=== PATIENT | female | born 1985 | race Hispanic/Latino ===

== ENCOUNTER → 2017-01-31 | Outpatient (CLI) | payer OTHER ==
[2017-01-31 18:51] LABS: BASO # 0.1 K/mm3 (0.0-0.2); BASO % 0.9 % (0.0-1.0); EOS # 0.3 K/mm3 (0.0-0.50); EOS % 3.2 % (0.0-3.0); LARGE UNSTAINED CELL # 0.1 K/mm3 (0.0-0.4); LARGE UNSTAINED CELL % 1.7 % (0.0-4.0); LYMPH # 1.7 K/mm3 (1.5-4.5); LYMPH % 19.8 % (24.0-44.0); MEAN CORPUSCULAR HEMOGLOBIN 30.2 pg (27.0-33.0); MEAN CORPUSCULAR VOLUME 91.6 fl (80.0-96.0); MONO # 0.5 K/mm3 (0.0-0.8); MONO % 5.8 % (0.0-5.0); NEUTROPHILS # 5.6 K/mm3 (1.8-7.7); NEUTROPHILS % 68.7 % (36.0-66.0); PLATELET COUNT, AUTOMATED 290 k/mm3 (150-450); RED CELL DISTRIBUTION WIDTH 12.6 % (11.5-14.5); WHITE BLOOD COUNT 8.1 K/mm3 (4.0-10.0)
[2017-02-02 09:31] LABS: HBsAg Prenatal NEGATIVE (NEGATIVE)
== END ==
LOC: M SMT 13:31
PROVIDERS: ATTEND Obstetrics & Gynecology
DX: Z36 Encounter for antenatal screening of mother (principal); Z3A.00 Weeks of gestation of pregnancy not specified

== ENCOUNTER 2017-07-15 12:23 | Outpatient (CLI) | payer OTHER | END 2017-07-15 13:58 | disposition home or self-care (01) | LOC: M LDO 12:23 | DX: O26.853 Spotting complicating pregnancy, third trimester (principal); Z3A.29 29 weeks gestation of pregnancy; Z79.899 Other long term (current) drug therapy | CPT/HCPCS: 59025 ==

== ENCOUNTER 2017-07-17 17:36 | Inpatient (IN) | payer OTHER ==
[2017-07-17] MEDS: NIFEdipine 10 MG CAP PO ×2 (20:41→22:52)
[2017-07-17] MEDS: MAG Sulf (L&D) 4 GM/100 ML 4 GM in APPROPRIATE DILUENT 1 EA IV (20:51)
[2017-07-17 20:56] LABS: MEAN CORPUSCULAR HEMOGLOBIN 29.4 pg (27.0-33.0); MEAN CORPUSCULAR HGB CONC 34.2 g/dl (32.0-36.5); MEAN CORPUSCULAR VOLUME 86.1 fl (80.0-96.0); RED BLOOD COUNT 7.04 10^6/uL (4.00-5.40); RED CELL DISTRIBUTION WIDTH 13.1 % (11.5-14.5); WHITE BLOOD COUNT 5.8 10^3/uL (4.0-10.0)
[2017-07-17] MEDS: BETAMETHASONE SOLUSPAN 6MG/ML INJ 5ML (J0702) IM (20:57)
[2017-07-17] MEDS: PENICILLIN G POTASSIUM IV 5 MU in D5W MINI-BAG PLUS 100 ML IV (20:57)
[2017-07-17] MEDS: raNITIdine SYRUP 150 MG/10 ML UDC PO (21:06)
[2017-07-17 21:08] LABS: HEMOGLOBIN 20.7 g/dl (12.0-16.0); SUSPECT SAMPLE POS FLAG
[2017-07-17 21:09] LABS: HEMATOCRIT 60.6 % (36.0-47.0); PLATELET COUNT, AUTOMATED 83 10^3/uL (150-450)
[2017-07-17 21:10] LABS: IMMATURE PLATELET FRACTION % 4.2 % (0.0-9.6)
[2017-07-17] MEDS: ONDANSETRON 4MG/2ML VIAL (J2405) IV (21:21)
[2017-07-17] MEDS: MAG Sulf (OBGYN) 20GM/500ML 20,000 MG in APPROPRIATE DILUENT 1 EA IV (21:25)
[2017-07-17 21:42] LABS: MEAN CORPUSCULAR HEMOGLOBIN 29.5 pg (27.0-33.0); MEAN CORPUSCULAR HGB CONC 33.3 g/dl (32.0-36.5); MEAN CORPUSCULAR VOLUME 88.4 fl (80.0-96.0); RED BLOOD COUNT 4.41 10^6/uL (4.00-5.40); RED CELL DISTRIBUTION WIDTH 12.5 % (11.5-14.5); WHITE BLOOD COUNT 15.1 10^3/uL (4.0-10.0)
[2017-07-17 21:46] LABS: PLATELET COUNT, AUTOMATED 232 10^3/uL (150-450)
[2017-07-17] MEDS: ACETAMINOPHEN TAB 650MG DOSE (2X325MG) PO (22:55)
[2017-07-17] MEDS: LACTATED RINGER'S 1000 ML IV (22:56)
[2017-07-17] MEDS: LR 1,000 ML IV (22:56)
[2017-07-17 23:40] LABS: AMPHETAMINES URINE REFLEX NEGATIVE (NEGATIVE); BARBITURATES URINE REFLEX NEGATIVE (NEGATIVE); BENZODIAZEPINES URINE REFLEX NEGATIVE (NEGATIVE); CANNABINOIDS URINE REFLEX NEGATIVE (NEGATIVE); COCAINE METABOLITE URINE REFLE NEGATIVE (NEGATIVE); METHADONE URINE REFLEX NEGATIVE (NEGATIVE); OPIATES URINE REFLEX NEGATIVE (NEGATIVE); PHENCYCLIDINE URINE REFLEX NEGATIVE (NEGATIVE)
[2017-07-18] MEDS: PROMETHAZINE INJ 25 MG/ML VIAL (J2550) IV (00:24)
[2017-07-18] MEDS: PENICILLIN G POTASSIUM IV 2.5 MU in APPROPRIATE DILUENT 1 EA IV ×6 (00:52→20:17)
[2017-07-18] MEDS: LR 1,000 ML IV ×2 (04:41→14:40)
[2017-07-18] MEDS ORDERED: ONDANSETRON 4MG/2ML VIAL (J2405) IV (06:00)
[2017-07-18 07:00] LABS: MAGNESIUM LEVEL 3.6 MG/DL (1.8-2.4)
[2017-07-18] MEDS: ACETAMINOPHEN TAB 650MG DOSE (2X325MG) PO ×2 (08:15→13:32)
[2017-07-18] MEDS: raNITIdine SYRUP 150 MG/10 ML UDC PO ×2 (08:24→20:17)
[2017-07-18] MEDS: MAG Sulf (OBGYN) 20GM/500ML 20,000 MG in APPROPRIATE DILUENT 1 EA IV ×2 (14:39→23:43)
[2017-07-18] MEDS: BETAMETHASONE SOLUSPAN 6MG/ML INJ 5ML (J0702) IM (20:22)
[2017-07-18] MEDS: diphenhydrAMINE 50 MG CAP PO (21:59)
[2017-07-18] MEDS ORDERED: MAGNESIUM SULFATE 4% INJ 20GM/500ML (40MG/ML) (J3475) As Ordered (23:37)
[2017-07-19] MEDS: PENICILLIN G POTASSIUM IV 2.5 MU in APPROPRIATE DILUENT 1 EA IV ×2 (01:06→04:21)
[2017-07-19] MEDS: ACETAMINOPHEN TAB 650MG DOSE (2X325MG) PO (01:11)
[2017-07-19] MEDS: CALCIUM CARBONATE 500 MG CHEW U/D PO (02:58)
[2017-07-19] MEDS: LR 1,000 ML IV (02:59)
== END 2017-07-19 09:40 | disposition home or self-care (01) | DRG 778 ==
LOC: M LDO 17:36 → M LDI 19:48
PROVIDERS: Obstetrics & Gynecology
DX: O60.03 Preterm labor without delivery, third trimester (principal); O26.873 Cervical shortening, third trimester; O34.211 Maternal care for low transverse scar from previous cesarean delivery; Z3A.30 30 weeks gestation of pregnancy; D25.9 Leiomyoma of uterus, unspecified; E86.0 Dehydration; O34.13 Maternal care for benign tumor of corpus uteri, third trimester; O99.283 Endocrine, nutritional and metabolic diseases complicating pregnancy, third trimester

== ENCOUNTER 2017-07-21 19:40 | Outpatient (CLI) | payer OTHER ==
[2017-07-21] MEDS: NIFEdipine 10 MG CAP PO ×4 (20:30→21:31)
[2017-07-21] MEDS ORDERED: MAGNESIUM SULFATE 4% INJ 20GM/500ML (40MG/ML) (J3475) As Ordered (20:36)
[2017-07-21] MEDS ORDERED: MAGNESIUM *L&D* 4 GM/100 ML BAG (40MG/ML) (J3475) As Ordered (20:36)
[2017-07-21] MEDS: LR 1,000 ML IV ×2 (20:49→20:52)
[2017-07-21] MEDS: MAG Sulf (L&D) 4 GM/100 ML 4 GM in APPROPRIATE DILUENT 1 EA IV (20:49)
[2017-07-21] MEDS: MAG Sulf (OBGYN) 20GM/500ML 20,000 MG in APPROPRIATE DILUENT 1 EA IV (21:11)
== END 2017-07-21 22:10 | disposition short-term general hospital (02) ==
LOC: M LDO 19:40
DX: O60.03 Preterm labor without delivery, third trimester (principal); Z3A.30 30 weeks gestation of pregnancy
CPT/HCPCS: 96365

== ENCOUNTER → 2020-04-29 | Outpatient (CLI) | payer OTHER ==
[~2020-04-29] MED LIST: MAPA500T2 PO; PRENTAB9 PO; ZANT300T9 PO
== END ==
LOC: M PLALAB 14:55
PROVIDERS: ATTEND Advanced Practice Midwife
DX: O09.521 Supervision of elderly multigravida, first trimester (principal); Z3A.00 Weeks of gestation of pregnancy not specified

== ENCOUNTER 2020-06-09 17:28 | Emergency (ER) | payer OTHER ==
[~2020-06-09] VITALS: Ht 154.9 cm; Wt 87.1 kg
[2020-06-09 17:29] VITALS: BP 118/67
[2020-06-09] MEDS ORDERED: MORPHINE 4 MG/ML 1ML VIAL/SYRINGE (J2270) IV ONE ×2 (18:30→19:15)
[2020-06-09 18:47] LABS: HEMATOCRIT 40.6 % (36.0-47.0); HEMOGLOBIN 13.2 g/dl (12.0-15.5); MEAN CORPUSCULAR HEMOGLOBIN 29.3 pg (27.0-33.0); MEAN CORPUSCULAR HGB CONC 32.5 g/dl (32.0-36.5); PLATELET COUNT, AUTOMATED 277 10^3/uL (150-450); RED BLOOD COUNT 4.51 10^6/uL (4.00-5.40); WHITE BLOOD COUNT 13.4 10^3/uL (4.0-10.0)
--- NOTE | 2020-06-09 20:14 | REPVR ---
PROCEDURE INFORMATION: Exam: US , Limited Exam date and time: 06/09/2020 7:43 PM Age: 34 years old Clinical indication: Antepartum complications; Bleeding; complicated by abdominal or pelvic pain; Lower; Second trimester; Gestational age or lmp: 02/01/2020; ; Additional info: 17 weeks /pain/bleeding TECHNIQUE: Imaging protocol: Real-time ultrasound of the maternal uterus with image documentation. Exam focused on the clinical indication. COMPARISON: US OBS SINGEL GEST 07/17/2017 7:11 PM FINDINGS: Last menstrual period: 02/01/2020 Gestation: No viable intrauterine is visualized. There are products of conception in the cervical canal and possibly in the vaginal canal. MATERNAL: Uterus: The uterus measures 13.7 cm x 9.3 cm x 9.6 cm. There is a 5.1 cm x 4.9 cm x 4.7 cm intramural/subserosal fibroid arising from the right posterior aspect of the body of the uterus. There is a trace amount of fluid in the endometrial canal. Right adnexa: The right ovary was not visualized due to obscuration by intestinal gas. Left adnexa: The left ovary was not visualized due to obscuration by intestinal gas. IMPRESSION: 1. No viable intrauterine visualized and there are products of conception in the cervical canal and possibly in the vaginal canal, which are findings compatible with an incomplete spontaneous . According to the technologist's notes, a preliminary report was provided by the pulmonary function technologist to the referring provider. 2. Uterine fibroid. Electronically signed by: Deshawn Mcmillan On 06/09/2020 20:14:39 PM
[2020-06-09] MEDS ORDERED: IBUP80TA PO (21:35)
== END 2020-06-09 19:57 | disposition admitted as inpatient to this hospital (09) ==
LOC: M ED 17:28
DX: O03.4 Incomplete spontaneous abortion without complication (principal)

== ENCOUNTER 2020-06-09 19:45 | Inpatient (IN) | payer OTHER ==
[2020-06-09 20:01] VITALS: BP 118/64
[2020-06-09 20:16] VITALS: BP 127/63
[2020-06-09 20:31] VITALS: BP 114/58
[2020-06-09 20:46] VITALS: BP 119/60
--- NOTE | 2020-06-09 20:51 | HPEPDOC ---
Obstetrical History & Physical General Date of Admission Jun 09, 2020 at 19:45 Primary Care Physician: TOM FORD CNM History of Present Illness Virgen is a 34 y/o Japanese speaking female, at 17.3 weeks by 1st trimester ultrasound on 04/01/20 at 7.4weeks. She presented to the ER with heavy vaginal bleeding and abdominal pain. On ultrasound there was no heartbeat and the products of conception were in the vagina. She was then transferred to Labor and Delivery. Upon arrival she had an urge to push and delivered all of the products of conception. This was complicated by an abnormal NIPT with a high risk for triploidy. She also has a history of a 32 week delivery to a baby that had many anomalies and a few days after . Due to the emergent nature of this situation her was present for translation. Chief Complaint: IUFD Information Provided By: Patient Age: 34 : 6 Term: 1 Pre-term: 1 Abortions: 3 Livin Care Care: Good Care Dating Final EDC: November 14, 2020 Final EDC by: 1st trimester (US) 1st Trimester Date: Apr 01, 2020 Weeks + Days: 7.4 EGA at Admission: 17.3 Past Medical History Past Obstetrical History #1: Past Obstetrical History: Primgravida Date of Delivery: Jan 23, 2016 Gestation: 39 Type of Delivery: Ceserean section Sex of Infant: Female (6lb 12oz) Past Obstetrical History #2: Past Obstetrical History: Multigravida (2017) Type of Delivery: Ceserean section Sex of Infant: Female (2lbs) Complications: Yes ( a few days after due to anomalies) MONOGRAM MAKER History: No pertinent history Past Medical History Medical History Denies Surgical History: section (2015, 2017) Family History Significant Family History: Other (Daughter with anomalies that after delivery) Social History Marital Status: Family situation: Spouse/partner home Psychosocial History: No pertinent psych hx * Smoker: non-smoker Alcohol: Denies Drugs: denies Allergies Coded Allergies: No Known Allergies (Unverified , 07/17/17) Medications Scheduled No.137/Iron/Folic Acd ( Vitamin Tablet) 1 Tab Tab, 1 TAB PO DAILY Scheduled PRN Ibuprofen (Ibuprofen) 800 Mg Tablet, 800 MG PO Q8HP PRN for PAIN Physical Examination Physical Examination GENERAL: Alert and oriented times three. ABDOMEN: Gravid and tender to touch. Fundus at U-1 post delivery. FETUS: Delivered within a few minutes upon arrival to unit, intact in the amniotic sac, placenta attached and appears to be intact. HEART RATE: Regular rate and rhythm. LUNGS: Clear to auscultation bilaterally, no accessory muscle use. EXTREMITIES: No edema. No clonus. Deep tendon reflexes (DTRs) + 2. Pertinent Laboratoy Data Blood Type: O+ RBC Antibody Screen: Negative HIV: Negative Hepatitis B: Negative Hepatitis C: Negative Rapid Plasma Reagin: Nonreactive Rubella: Immune Chlamydia/Gonorrhea: Negative Group B Streptococcus: Unknown Diag/Inter Therapy NIPT high risk for triploidy Steroid Therapy Steroid Therapy: No Vaginal Examination Dilation: 4 cm Effacement: 80% Station: +2 Cervical Consistency: Soft Cervical Position: Middle Presentation: Breech presentation Tocometer Contractions: Yes (Pushed with 2 contractions once on the unit and delivered) Frequency: regular, every 2-5 min. Duration: greater than 60 seconds Strength: palpated as moderate, resting tone palp/soft Multi-drug resistant Organism: No history of MDRO Assessment/Plan Assessment Miscarriage at 17.3weeks AMA History of fetus with anomalies Vaginal delivery Plan Admit and oriented to Labor and Delivery. Diet: Regular. Group B Streptococcus (GBS) unknown. Labs and intravenous (IV) obtained in ED Maintain Saline lock Declined all medication in pushing and . Education done on chromosomal analysis and tissue biopsy and parents consented. Discharge home 6 hours post delivery TOM FORD CNM Jun 09, 2020 20:35
--- NOTE | 2020-06-09 20:52 | DNPDOC ---
[facility] Delivery Note Delivery Note DATE OF DELIVERY: 06/09/20 @ 1959 PREDELIVERY DIAGNOSIS: 17-3/7 weeks' gestation and pre term labor. POST DELIVERY DIAGNOSIS: Delivered. PROCEDURE: Spontaneous vaginal delivery COMMISSARY WORKER: Tom Bentley CNM, SHIKHA/ JADEN Flores ANESTHESIA: None. ESTIMATED BLOOD LOSS: 50 mL. FINDINGS: Miscarriage, all products of conception delivered intact, 2.7 oz., 76.5g, unknown gender DELIVERY SUMMARY: Patient is a 34-year-old 6 now para 1-1-4-1 who was admitted to labor and delivery for a miscarriage upon arrival to the unit. She was admitted from the ER where she had a c/o abdominal pain and heavy bleeding. Upon arrival to the unit she was 4/80/+2 with strong urge to push. Minimal maternal pushing efforts and all products of conception were delivered intact. Parents consented to genetic testing (chromosomal analysis of products of conception) and the decision was made to keep the amniotic sac intact to improve genetic testing outcomes. Fundus was firm at U-1 with minimal bleeding. Perineum, vagina, and cervix were examined for lacerations and none were seen. Sponges were counted and correct. Patient is in stable condition. TOM BENTLEY CNM Jun 09, 2020 20:48
[2020-06-09] MEDS ORDERED: IBUP80TA PO (21:35)
[2020-06-09] MEDS ORDERED: IBUPROFEN 800 MG TAB PO ONE (21:45)
--- NOTE | 2020-06-09 21:53 | DS.PDOC ---
Discharge Summary General Date of Admission Jun 09, 2020 at 19:45 Date of Discharge 06/09/20 Primary Care Physician: TOM FORD CNM Discharge Summary PROCEDURES PERFORMED DURING STAY: None ADMITTING DIAGNOSES: 1. impending miscarriage at 17.3 weeks gestation. DISCHARGE DIAGNOSES: 1. . COMPLICATIONS/CHIEF COMPLAINT: Premature Labor. HISTORY OF PRESENT ILLNESS: . HOSPITAL COURSE: uncomplicated. DISCHARGE MEDICATIONS: Please see below. ALLERGIES: Please see below. PHYSICAL EXAMINATION ON DISCHARGE: VITAL SIGNS: Please see below. GENERAL: HEENT: NECK: CARDIOVASCULAR EXAMINATION: RESPIRATORY EXAMINATION: ABDOMINAL EXAMINATION: EXTREMITIES: SKIN: NEUROLOGICAL EXAMINATION: PSYCHIATRIC EXAMINATION: LABORATORY DATA: Please see below. IMAGING: PROGNOSIS: ACTIVITY: [As tolerated]. DIET: regular DISCHARGE PLAN: DISPOSITION: . DISCHARGE INSTRUCTIONS: 1. . ITEMS TO FOLLOWUP ON ON OUTPATIENT: 1. . DISCHARGE CONDITION: Stable. TIME SPENT ON DISCHARGE: Greater than minutes. Vital Signs/I&Os Vital Signs Date Time Temp Pulse Resp B/P (MAP) Pulse Ox O2 Delivery O2 Flow Rate FiO2 06/09/20 20:46 88 119/60 (79) 06/09/20 20:01 97.7 20 Room Air Discharge Medications Scheduled No.137/Iron/Folic Acd ( Vitamin Tablet) 1 Tab Tab, 1 TAB PO DAILY, (Reported) Scheduled PRN Ibuprofen (Ibuprofen) 800 Mg Tablet, 800 MG PO Q8HP PRN for PAIN Allergies Coded Allergies: No Known Allergies (Unverified , 07/17/17) TOM FORD CNM Jun 09, 2020 21:53
== END 2020-06-09 23:00 | disposition home or self-care (01) | DRG 779 ==
LOC: M LDI 19:45
PROVIDERS: ADMIT Advanced Practice Midwife; ATTEND Advanced Practice Midwife
DX: O02.1 Missed abortion (principal)